=== PATIENT | female | born 1975 | race American Indian/Alaskan Native ===

== ENCOUNTER 2019-01-19 18:45 | Emergency (ER) | payer MEDICAID ==
--- NOTE | 2019-01-19 18:51 | Emergency Department Report ---
Blank Doc - Documentation Documentation: This is a 43-year-old female that presents with decreased appetite. Stated had has chest pain yesterday. Denies any chest pain today or SOB. This initial assessment/diagnostic orders/clinical plan/treatment(s) is/are subject to change based on patient's health status, clinical progression and re- assessment by fellow clinical providers in the ED. Further treatment and workup at subsequent clinical providers discretion. Patient/guardians urged not to elope from the ED as their condition may be serious if not clinically assessed and managed. Initial orders include: 1- Patient sent to [facility] for further evaluation and treatment 2- EKG 3- labs 4- UA
[2019-01-19 20:25] LABS: Basophils # (Auto) 0.1 K/mm3 (0.0-0.1); Basophils % (Auto) 1.1 % (0.0-1.8); Eosinophils # (Auto) 0.1 K/mm3 (0.0-0.4); Eosinophils % (Auto) 1.8 % (0.0-4.3); Hemoglobin 12.6 gm/dl (10.1-14.3); Lymphocytes # (Auto) 1.9 K/mm3 (1.2-5.4); Lymphocytes % (Auto) 29.6 % (13.4-35.0); Mean Corpuscular HGB Conc 33 % (30-34); Mean Corpuscular Volume 85 fl (79-97); Monocytes # (Auto) 0.6 K/mm3 (0.0-0.8); Monocytes % (Auto) 10.1 % (0.0-7.3); Platelet Count 448 K/mm3 (140-440); Red Blood Count 4.47 M/mm3 (3.65-5.03); Red Cell Distribution Width 14.4 % (13.2-15.2)
[2019-01-19] MEDS ORDERED: DECADRON IV ONE (20:34)
[2019-01-19] MEDS ORDERED: PEPCID IV ONE (20:34)
[2019-01-19] MEDS ORDERED: BENADRYL IV ONE (20:35)
[2019-01-19 20:41] LABS: Alanine Aminotransferase 15 units/L (7-56); Albumin 3.8 g/dL (3.9-5); BUN/Creatinine Ratio 14; Blood Urea Nitrogen 13 mg/dL (7-17); Calcium 9.3 mg/dL (8.4-10.2); Hemolysis Index 5
[2019-01-19 21:10] LABS: Bacteria,Urine 1+ /HPF (Negative); Bilirubin,Urine NEG (Negative); Blood,Urine NEG (Negative); Color,Urine Yellow (Yellow); Mucus,Urine 2+ /HPF; Protein,Urine <15 mg/dL mg/dL (Negative)
--- NOTE | 2019-01-19 21:14 | Emergency Department Report ---
ED Palpitations HPI - General Chief Complaint: Arrhythmia/Palpitations Stated Complaint: HEART DISCOMFORT Time Seen by Provider: 01/19/19 18:49 Source: patient Mode of arrival: Ambulatory Limitations: No Limitations - History of Present Illness Initial Comments: This is a 43-year-old female with hx of WPW s/p ablation 2 yrs ago, pt presents with decreased appetite and palpitations x 2 days , Stated had has chest pain yesterday. no cp no sob no n/v no dizziness no lightheadedness no diaphoresis , now states symptoms exacerbated again today after eating shrimp which she is allergic to. There are no palpations ,cp or sob at this time. MD Complaint: rapid heart beat, palpitations Onset/Timin -: days(s), unknown (hx of same for past 2 yrs ) Context: occured during rest Arrythmia History: history of ablation, other (hx of WPW ) Associated Symptoms: chest pain, anxiety, other (palpitations) Treatments Prior to Arrival: other (none ) - Related Data Previous Rx's Medication Instructions Recorded Last Taken Type EPINEPHrine [Epipen 2-Ever] 0.3 mg IJ PRN PRN #1 auto.injct 01/20/19 Unknown Rx Famotidine [Pepcid] 10 mg PO BID 7 Days #14 tablet 01/20/19 Unknown Rx Ibuprofen [Motrin 800 MG tab] 800 mg PO Q8HR PRN #30 tablet 01/20/19 Unknown Rx diphenhydrAMINE [Benadryl CAP] 25 mg PO Q6HR PRN 7 Days #28 01/20/19 Unknown Rx capsule predniSONE [Deltasone] 40 mg PO QDAY 5 Days #10 tab 01/20/19 Unknown Rx Allergies Allergy/AdvReac Type Severity Reaction Status Date / Time tramadol [From Ultram] AdvReac Unknown Verified 01/19/19 18:48 ED Review of Systems ROS: Stated complaint: HEART DISCOMFORT Other details as noted in HPI Constitutional: denies: chills, fever Eyes: denies: eye pain, eye discharge, vision change ENT: denies: ear pain, throat pain Respiratory: denies: cough, shortness of breath, wheezing Cardiovascular: chest pain, palpitations. denies: dyspnea on exertion, edema, syncope, paroxysmal nocturnal dyspnea Endocrine: no symptoms reported Gastrointestinal: denies: abdominal pain, nausea, vomiting, diarrhea Genitourinary: denies: urgency, dysuria, frequency, hematuria, discharge Musculoskeletal: denies: back pain Skin: denies: rash, lesions Neurological: denies: headache, weakness, numbness, paresthesias, confusion, vertigo Psychiatric: anxiety Hematological/Lymphatic: denies: easy bleeding, easy bruising ED Past Medical Hx - Past Medical History Previous Medical History?: Yes Additional medical history: WPW - Surgical History Past Surgical History?: No - Medications Home Medications: Home Medications Medication Instructions Recorded Confirmed Last Taken Type EPINEPHrine [Epipen 2-Ever] 0.3 mg IJ PRN PRN #1 auto.injct 01/20/19 Unknown Rx Famotidine [Pepcid] 10 mg PO BID 7 Days #14 tablet 01/20/19 Unknown Rx Ibuprofen [Motrin 800 MG tab] 800 mg PO Q8HR PRN #30 tablet 01/20/19 Unknown Rx diphenhydrAMINE [Benadryl CAP] 25 mg PO Q6HR PRN 7 Days #28 01/20/19 Unknown Rx capsule predniSONE [Deltasone] 40 mg PO QDAY 5 Days #10 tab 01/20/19 Unknown Rx ED Physical Exam - General Limitations: No Limitations General appearance: alert, in no apparent distress - Head Head exam: Present: atraumatic, normocephalic - Eye Eye exam: Present: normal appearance, PERRL, EOMI Pupils: Present: normal accommodation - ENT ENT exam: Present: mucous membranes moist - Neck Neck exam: Present: normal inspection, full ROM. Absent: tenderness, lymphadenopathy - Respiratory Respiratory exam: Present: normal lung sounds bilaterally. Absent: respiratory distress, wheezes, stridor, chest wall tenderness - Cardiovascular Cardiovascular Exam: Present: normal rhythm, tachycardia, normal heart sounds. Absent: systolic murmur, diastolic murmur, rubs, gallop - GI/Abdominal GI/Abdominal exam: Present: soft, normal bowel sounds. Absent: distended, tenderness, guarding, rebound, rigid, bruit, hernia - Rectal Rectal exam: Present: deferred - Extremities Exam Extremities exam: Present: normal inspection, full ROM, normal capillary refill. Absent: tenderness, pedal edema, joint swelling - Back Exam Back exam: Present: normal inspection, full ROM. Absent: tenderness, CVA tend erness (R), CVA tenderness (L), rash noted - Neurological Exam Neurological exam: Present: alert, oriented X3, CN II-XII intact, normal gait - Psychiatric Psychiatric exam: Present: normal affect - Skin Skin exam: Present: warm, dry, intact, normal color, erythema, urticaria, other (hives face and neck ). Absent: rash ED Course Vital Signs 01/19/19 18:50 Temperature 98.2 F Pulse Rate 120 H Respiratory 16 Rate Blood Pressure 129/84 [Right] O2 Sat by Pulse 100 Oximetry ED Medical Decision Making - Lab Data Result diagrams: 01/19/19 20:16 01/19/19 20:16 Labs 01/19/19 01/19/19 01/19/19 20:16 20:16 20:16 WBC 6.4 RBC 4.47 Hgb 12.6 Hct 38.0 MCV 85 MCH 28 MCHC 33 RDW 14.4 Plt Count 448 H Lymph % (Auto) 29.6 [place] % (Auto) 10.1 H Eos % (Auto) 1.8 Baso % (Auto) 1.1 Lymph # 1.9 [place] # 0.6 Eos # 0.1 Baso # 0.1 Seg Neutrophils % 57.4 Seg Neutrophils # 3.7 Sodium 142 Potassium 3.6 Chloride 103.7 Carbon Dioxide 27 Anion Gap 15 BUN 13 Creatinine 0.9 Estimated GFR > 60 BUN/Creatinine Ratio 14 Glucose 89 Calcium 9.3 Magnesium Total Bilirubin 0.30 AST 18 ALT 15 Alkaline Phosphatase 68 Troponin T Total Protein 8.2 Albumin 3.8 L Albumin/Globulin Ratio 0.9 TSH HCG, Qual Negative Urine Color Urine Turbidity Urine pH Ur Specific [place] Urine Protein Urine Glucose (UA) Urine Ketones Urine Blood Urine Nitrite Urine Bilirubin Urine Urobilinogen Ur Leukocyte Esterase Urine WBC (Auto) Urine RBC (Auto) U Epithel Cells (Auto) Urine Bacteria (Auto) Urine Mucus 01/19/19 01/19/19 01/19/19 20:16 20:16 20:16 WBC RBC Hgb Hct MCV MCH MCHC RDW Plt Count Lymph % (Auto) [place] % (Auto) Eos % (Auto) Baso % (Auto) Lymph # [place] # Eos # Baso # Seg Neutrophils % Seg Neutrophils # Sodium Potassium Chloride Carbon Dioxide Anion Gap BUN Creatinine Estimated GFR BUN/Creatinine Ratio Glucose Calcium Magnesium 0.20 L* Total Bilirubin AST ALT Alkaline Phosphatase Troponin T < 0.010 Total Protein Albumin Albumin/Globulin Ratio TSH 0.760 HCG, Qual Urine Color Urine Turbidity Urine pH Ur Specific [place] Urine Protein Urine Glucose (UA) Urine Ketones Urine Blood Urine Nitrite Urine Bilirubin Urine Urobilinogen Ur Leukocyte Esterase Urine WBC (Auto) Urine RBC (Auto) U Epithel Cells (Auto) Urine Bacteria (Auto) Urine Mucus 01/19/19 01/19/19 01/19/19 20:20 22:28 22:28 WBC RBC Hgb Hct MCV MCH MCHC RDW Plt Count Lymph % (Auto) [place] % (Auto) Eos % (Auto) Baso % (Auto) Lymph # [place] # Eos # Baso # Seg Neutrophils % Seg Neutrophils # Sodium Potassium Chloride Carbon Dioxide Anion Gap BUN Creatinine Estimated GFR BUN/Creatinine Ratio Glucose Calcium Magnesium 2.10 Total Bilirubin AST ALT Alkaline Phosphatase Troponin T < 0.010 Total Protein Albumin Albumin/Globulin Ratio TSH HCG, Qual Urine Color Yellow Urine Turbidity Slightly-cloudy Urine pH 6.0 Ur Specific [place] 1.026 Urine Protein <15 mg/dl Urine Glucose (UA) Neg Urine Ketones Tr Urine Blood Neg Urine Nitrite Neg Urine Bilirubin Neg Urine Urobilinogen 2.0 Ur Leukocyte Esterase Neg Urine WBC (Auto) 1.0 Urine RBC (Auto) 2.0 U Epithel Cells (Auto) 2.0 Urine Bacteria (Auto) 1+ Urine Mucus 2+ - EKG Data EKG shows normal: sinus rhythm, axis, intervals, QRS complexes, ST-T waves Rate: tachycardia - EKG Data When compared to previous EKG there are: previous EKG unavailable Interpretation: normal EKG (ekg interp by ed attending) - Radiology Data Radiology results: report reviewed, image reviewed Ordering Physician: LEWIS DAMIAN NP Date of Service: 01/19/19 Procedure(s): XR chest routine 2V Accession Number(s): [id number] cc: LEWIS DAMIAN NP Fluoro Time In Minutes: PROCEDURE: XR CHEST ROUTINE 2V TECHNIQUE: PA and lateral chest radiographs were obtained. HISTORY: Chest pain COMPARISONS: None. FINDINGS: Heart: Normal. Mediastinum/Vessels: Normal. Lungs/Pleural space: No infiltrate, effusion, or pneumothorax. Bony thorax: No acute osseous abnormality. IMPRESSION: No pulmonary infiltrates are identified. This document is electronically signed by Paula Hernandez MD., Jan 19 2019 10:09:00 PM ET Transcribed By: [facility] Dictated By: PAULA HERNANDEZ M.D. Electronically Authenticated By: PAULA HERNANDEZ M.D. Signed Date/Time: 01/19/192209 DD/ 99 TD/TT: 01/19/192109 - Medical Decision Making heart score is 0, ALTA score is 0, cp resolved, allergy symptoms resolved, mag level 2.10, plan dc to home with rx for benadryl prednisone, pepcid pt will take insulin upon arrival to home pt is currently a/o x 3 ambulatory with steady gait no sob no wheezing no cp no n/v pt will follow up with pcp in 2 days return to ed if symptoms worsen pt verbalized agreement and understanding of discharge plan. Critical care attestation.: If time is entered above; I have spent that time in minutes in the direct care of this critically ill patient, excluding procedure time. ED Disposition Clinical Impression: Palpitations Allergic reaction to food Qualifiers: Encounter type: initial encounter Qualified Code(s): T78.1XXA - Other adverse food reactions, not elsewhere classified, initial encounter Disposition: DC-01 TO HOME OR SELFCARE Is pt being admited?: No Does the pt Need Aspirin: No Condition: Stable Instructions: Food Allergy (ED), Palpitations (ED) Prescriptions: diphenhydrAMINE [Benadryl CAP] 25 mg PO Q6HR PRN 7 Days #28 capsule PRN Reason: Itching predniSONE [Deltasone] 40 mg PO QDAY 5 Days #10 tab EPINEPHrine [Epipen 2-Ever] 0.3 mg IJ PRN PRN #1 auto.injct PRN Reason: severe allergy symptoms Ibuprofen [Motrin 800 MG tab] 800 mg PO Q8HR PRN #30 tablet PRN Reason: Pain , Severe (7-10) Famotidine [Pepcid] 10 mg PO BID 7 Days #14 tablet Referrals: TOMI GREER MD [Staff Physician] - 3-5 Days Forms: Work/School Release Form(ED) Time of Disposition: 00:17
--- NOTE | 2019-01-19 22:10 | XRay Report ---
PROCEDURE: XR CHEST ROUTINE 2V TECHNIQUE: PA and lateral chest radiographs were obtained. HISTORY: Chest pain COMPARISONS: None. FINDINGS: Heart: Normal. Mediastinum/Vessels: Normal. Lungs/Pleural space: No infiltrate, effusion, or pneumothorax. Bony thorax: No acute osseous abnormality. IMPRESSION: No pulmonary infiltrates are identified. This document is electronically signed by Paula Hernandez MD., Jan 19 2019 10:09:00 PM ET
[2019-01-19] MEDS ORDERED: MAGNESIUM SULFATE 2GM/50ML 2 GM/50 ML BAG IV ONE ×2 (22:34→22:36)
[2019-01-20 02:36] VITALS: BP 129/94
== END 2019-01-20 01:25 | disposition home or self-care (01) ==
LOC: ED 18:45
DX: R00.2 Palpitations (principal); T78.1XXA Other adverse food reactions, not elsewhere classified, initial encounter; Z88.5 Allergy status to narcotic agent; Y92.89 Other specified places as the place of occurrence of the external cause
CPT/HCPCS: 36415; 71046; 80053; 81001; 83735; 84443; 84484; 84703; 85025; 93005; 93010; 96365; 96375; 99284; J1100; J1200; J3475

== ENCOUNTER 2019-07-20 02:41 | Emergency (ER) | payer MEDICAID ==
[2019-07-20] MEDS ORDERED: IBUPROFEN 600 MG TAB PO ONE (03:23)
[2019-07-20] MEDS ORDERED: ALUM-MAG HYDROXIDE-SIMETHICONE 200-200-20MG/5ML ORAL LIQD 30 ML PO ONE (08:11)
[2019-07-20] MEDS ORDERED: LIDOCAINE VISCOUS 2% 15 ML ORAL LIQD PO ONE (08:11)
--- NOTE | 2019-07-20 08:30 | Emergency Department Report ---
ED Chest Pain HPI - General Chief Complaint: Medical Clearance Stated Complaint: GENERALIZED ILLNESS Time Seen by Provider: 07/20/19 08:07 Source: patient, EMS Mode of arrival: Ambulatory Limitations: No Limitations - History of Present Illness Initial Comments: 44 YO COMES TO ER WITH PALPITATIONS AND CP. SHE IS FOLLOWED BY CARDS AND HAS A LOOP RECORDER. SHE HAD EPISODE ABOUT 0100 THAT FRIGHTENED HER SO SHE CAME TO ER. SHE HAS HAD RECENT ABLATION. SHE TAKES SEVERAL MEDS BUT CAN NOT RECALL THEM TO ME ON EXAM SHE HAS NO CP OR PALPITATIONS. SHE ONLY HAS PAIN WHEN SHE HAS THE PALPITATIONS AND I SAID CARDS IS FOLLOWING HER. NO SOB NO FEVER AMBULATORY AND NON ILL APPEARING. MD Complaint: chest pain -: Sudden, minutes(s) Onset: during rest Pain Location: substernal Severity: mild Quality: tightness Consistency: intermittent Improves With: nothing Worsens With: nothing Aspirin use within the Past 7 Days: (0) No - Related Data On Oral Contraceptives: No Previous Rx's Medication Instructions Recorded Last Taken Type EPINEPHrine [Epipen 2-Ever] 0.3 mg IJ PRN PRN #1 auto.injct 01/20/19 Unknown Rx Famotidine [Pepcid] 10 mg PO BID 7 Days #14 tablet 01/20/19 Unknown Rx Allergies Allergy/AdvReac Type Severity Reaction Status Date / Time tramadol [From Ultram] AdvReac Unknown Verified 01/19/19 18:48 Heart Score - HEART Score History: Slightly suspicious EKG: Normal Age: 45-65 Risk factors: 1-2 risk factors Troponin: < normal limit HEART Score: 2 ED Review of Systems ROS: Stated complaint: GENERALIZED ILLNESS Other details as noted in HPI Comment: All other systems reviewed and negative ED Past Medical Hx - Past Medical History Previous Medical History?: Yes Additional medical history: WPW - Surgical History Past Surgical History?: Yes Additional Surgical History: chest, loop recorder - Family History Family history: no significant - Social History Smoking Status: Former Smoker Substance Use Type: None - Medications Home Medications: Home Medications Medication Instructions Recorded Confirmed Last Taken Type EPINEPHrine [Epipen 2-Ever] 0.3 mg IJ PRN PRN #1 auto.injct 01/20/19 Unknown Rx Famotidine [Pepcid] 10 mg PO BID 7 Days #14 tablet 01/20/19 Unknown Rx ED Physical Exam - General Limitations: No Limitations General appearance: alert, in no apparent distress - Head Head exam: Present: atraumatic, normocephalic - Eye Eye exam: Present: normal appearance - ENT ENT exam: Present: mucous membranes moist - Neck Neck exam: Present: normal inspection - Respiratory Respiratory exam: Present: normal lung sounds bilaterally. Absent: respiratory distress - Cardiovascular Cardiovascular Exam: Present: regular rate, normal rhythm. Absent: systolic murmur, diastolic murmur, rubs, gallop - GI/Abdominal GI/Abdominal exam: Present: soft, normal bowel sounds - Extremities Exam Extremities exam: Present: normal inspection - Back Exam Back exam: Present: normal inspection - Neurological Exam Neurological exam: Present: alert, oriented X3 - Psychiatric Psychiatric exam: Present: normal affect, normal mood - Skin Skin exam: Present: warm, dry, intact, normal color. Absent: rash ED Course Vital Signs 07/20/19 07/20/19 02:59 09:24 Temperature 98.2 F 97.8 F Pulse Rate 82 85 Respiratory 20 14 Rate Blood Pressure 122/83 Blood Pressure 117/77 [R Arm] O2 Sat by Pulse 97 100 Oximetry LUIS ARMANDO score - Luis Armando Score Age > 65: (0) No Aspirin use within the Past 7 Days: (0) No 3 or more CAD Risk Factors: (0) No 2 or more Angina events in past 24 hrs: (0) No Known CAD with more than 50% Stenosis: (0) No Elevated Cardiac Markers: (0) No ST Deviation Greater than 0.5mm: (0) No LUIS ARMANDO Score: 0 ED Medical Decision Making - Lab Data Result diagrams: 07/20/19 08:46 07/20/19 08:46 - EKG Data EKG shows normal: sinus rhythm Rate: normal - EKG Data Interpretation: no acute changes - Medical Decision Making Labs 07/20/19 07/20/19 08:46 08:46 WBC 6.9 RBC 4.22 Hgb 11.8 Hct 37.0 MCV 88 MCH 28 MCHC 32 RDW 17.5 H Plt Count 334 Lymph % (Auto) 22.8 [place] % (Auto) 8.0 H Eos % (Auto) 2.4 Baso % (Auto) 0.3 Lymph # 1.6 [place] # 0.5 Eos # 0.2 Baso # 0.0 Seg Neutrophils % 66.5 Seg Neutrophils # 4.6 Sodium 141 Potassium 3.6 Chloride 101.5 Carbon Dioxide 25 Anion Gap 18 BUN 15 Creatinine 1.0 Estimated GFR > 60 BUN/Creatinine Ratio 15 Glucose 113 H Calcium 9.1 Magnesium 2.20 Total Bilirubin 0.30 AST 13 ALT 14 Alkaline Phosphatase 64 Troponin T < 0.010 Total Protein 7.9 Albumin 4.1 Albumin/Globulin Ratio 1.1 Vital Signs 07/20/19 07/20/19 02:59 09:24 Temperature 98.2 F 97.8 F Pulse Rate 82 85 Respiratory 20 14 Rate Blood Pressure 122/83 Blood Pressure 117/77 [R Arm] O2 Sat by Pulse 97 100 Oximetry EKG X 2 NOTED TROP NEG OTHER LABS NOTED PT IS FOLLOWED BY CARDIOLOGY HAS BEEN IN ER FOR CLOSE TO 7 H WITH NO CP OR PALPITATIONS SHE IS BEING DC HOME TO FOLLOW UP WITH HER CARDS MD TODAY - Differential Diagnosis RO ARRHYTHMIA/EVAL TROP Critical care attestation.: If time is entered above; I have spent that time in minutes in the direct care of this critically ill patient, excluding procedure time. ED Disposition Clinical Impression: Palpitation, Chest pain, History of loop recorder Disposition: DC-01 TO HOME OR SELFCARE Is pt being admited?: No Does the pt Need Aspirin: No Condition: Stable Instructions: Chest Pain (ED) Additional Instructions: PLEASE CALL CARDIOLOGY OFFICE [facility] AND LET THEM KNOW YOU WERE IN THE ER TODAY AND THEY SHOULD FOLLOW UP WITH YOU TODAY OR THURSDAY AM - GIVEN YOUR RECENT ABLATION AND KIMBER. CONTINUE HOME MEDS DIET AND ACTIVITY TOLERATED FOLLOW UP PCP NEXT WEEK REFERRAL BELOW HYDRATE WELL WITH WATER FOLLOW INSTRUCTIONS CARDIOLOGY HAS GIVEN YOU REGARDING LOOP RECORDER Referrals: PRIMARY MD JENNIFER [Primary Care Provider] - 3-5 Days JONY PHELPS MD [Staff Physician] - 3-5 Days Forms: Work/School Release Form(ED) Time of Disposition: 09:46
[2019-07-20 09:18] LABS: Basophils % (Auto) 0.3 % (0.0-1.8); Eosinophils # (Auto) 0.2 K/mm3 (0.0-0.4); Eosinophils % (Auto) 2.4 % (0.0-4.3); Hemoglobin 11.8 gm/dl (10.1-14.3); Lymphocytes # (Auto) 1.6 K/mm3 (1.2-5.4); Lymphocytes % (Auto) 22.8 % (13.4-35.0); Mean Corpuscular HGB Conc 32 % (30-34); Mean Corpuscular Volume 88 fl (79-97); Monocytes # (Auto) 0.5 K/mm3 (0.0-0.8); Platelet Count 334 K/mm3 (140-440); Red Blood Count 4.22 M/mm3 (3.65-5.03); Red Cell Distribution Width 17.5 % (13.2-15.2)
[2019-07-20 09:25] VITALS: BP 117/77
[2019-07-20 09:43] LABS: Alanine Aminotransferase 14 units/L (7-56); Albumin 4.1 g/dL (3.9-5); BUN/Creatinine Ratio 15; Blood Urea Nitrogen 15 mg/dL (7-17); Calcium 9.1 mg/dL (8.4-10.2); Hemolysis Index 8
== END 2019-07-20 10:04 | disposition home or self-care (01) ==
LOC: ED 02:41
DX: R00.2 Palpitations (principal); R07.89 Other chest pain; Z98.890 Other specified postprocedural states; Z87.891 Personal history of nicotine dependence; Z88.6 Allergy status to analgesic agent
CPT/HCPCS: 36415; 80053; 83735; 84484; 85025; 93005; 93010